=== PATIENT | male | born 1985 | race Caucasian/White ===

== ENCOUNTER 2017-10-19 11:07 | Emergency (ER) | payer SELFPAY ==
[~2017-10-19] VITALS: Ht 182.9 cm; Wt 100.8 kg
[~2017-10-19 11:07] MED LIST: CPR500 PO; PHEN-1043 PO; TAMS0.4C38 PO
[2017-10-19 11:12] VITALS: TEMP 36.2; Ht 182.9 cm; Wt 100.8 kg
[2017-10-19] MEDS ORDERED: SODIUM CHLORIDE 0.9% 1000ML 1,000 ML IV ONE (11:27)
[2017-10-19] MEDS ORDERED: SODIUM CHLORIDE 0.9% 1000ML 1,000 ML IV STA (11:27)
[2017-10-19] MEDS ORDERED: ONDANSETRON INJ 2 MG/ML 2 ML VIAL IV STA (11:27)
[2017-10-19] MEDS ORDERED: HYDROmorphone INJ 1 MG/ML SYR IV STA ×2 (11:27→11:53)
[2017-10-19 11:35] LABS: BASO % 0.6 %; BASO ABS # 0.05 K/uL (0-0.2); EOS % 8.8 %; EOS ABS # 0.75 K/uL (0-0.5); HEMATOCRIT 44.7 % (42-52); HEMOGLOBIN 15.9 g/dL (14.0-18.0); IG# 0.01 K/uL (0.00-0.02); LYMPH % 29.4 %; LYMPH ABS # 2.49 K/uL (1.2-3.4); MEAN CORPUSCULAR HEMOGLOBIN 29.9 pg (25-34); MEAN CORPUSCULAR HGB CONC 35.6 g/dl (32-36); MEAN PLATELET VOLUME 10.2 fL (7.4-10.4); MONO % 7.5 %; MONO ABS # 0.64 K/uL (0.11-0.59); NEUT % 53.6 %; NEUT ABS # 4.54 K/uL (1.4-6.5); PLATELET COUNT 236 K/uL (130-400); RED CELL DISTRIBUTION WIDTH CV 12.8 % (11.5-14.5); RED CELL DISTRIBUTION WIDTH SD 38.5 fL (36.4-46.3); WHITE BLOOD COUNT 8.48 K/uL (4.8-10.8)
[2017-10-19 11:47] LABS: ALBUMIN 4.2 gm/dl (3.4-5.0); CALCIUM 9.2 mg/dl (8.5-10.1); CREATININE 1.05 mg/dl (0.60-1.40); POTASSIUM 3.7 mmol/L (3.5-5.1)
[2017-10-19 11:50] LABS: TOTAL PROTEIN 7.4 gm/dl (6.4-8.2)
[2017-10-19] MEDS ORDERED: KETOROLAC TROMETHAMINE 30 MG/ML VIAL IV STA (11:53)
--- NOTE | 2017-10-19 12:38 | DIAGNOSTIC IMAGING REPORT ---
ABD/PELVIS WITHOUT FOR STONE CT DOSE: 1200.33 mGy.cm HISTORY: Flank pain eval for stone TECHNIQUE: Multiaxial CT images of the abdomen and pelvis were performed without the use of intravenous and oral contrast according to the standard department stone protocol. A dose lowering technique was utilized adhering to the principles of ALARA. COMPARISON STUDY: 12/03/2015 FINDINGS: Lung bases are clear. Liver spleen and pancreas are unremarkable. bilateral nephrocalcinosis, which is slightly progressive as compared to the prior study. 5 mm obstructing calculus proximal left ureter. Mild left hydroureteronephrosis. No significant perinephric fat stranding. The bowel pattern is considered nonobstructive. Bladder is midline. There is no free fluid within the pelvic cul-de-sac. IMPRESSION: 1. 5 mm obstructing calculus proximal left ureter. 2. Mild left hydroureteronephrosis. 3. Bilateral nephrocalcinosis slightly progressive from the prior study. The above report was generated using voice recognition software. It may contain grammatical, syntax or spelling errors. Electronically signed by: Johan Bueno M.D. 10/19/2017 12:36 PM Dictated Date/Time: 10/19/2017 12:28 PM
[2017-10-19] MEDS ORDERED: TAMS0.4C38 PO ×2 (16:25→16:53)
[2017-10-19] MEDS ORDERED: OXYC1TAB3 PO ×2 (16:25→16:53)
--- NOTE | 2017-10-19 16:27 | EMERGENCY ROOM VISIT NOTE ---
History Report prepared by Chintan: Paco Maynard Under the Supervision of: Dr. Baltazar Pham M.D. First contact with patient: 11:23 Chief Complaint: FLANK PAIN Stated Complaint: KIDNEY STONES History of Present Illness The patient is a 31 year old male who presents to the Emergency Room with complaints of worsening and severe left lower quadrant abdominal pain that began last night. The patient states that his left lower quadrant pain does radiate into his left flank as well. His pain worsened significantly this morning after eating breakfast. He does have a history of Kidney Stones and had his last episode a couple of months ago. Source of History: patient Onset: Last night Position: abdomen (LLQ) Symptom Intensity: severe Timing: worsening Associated Symptoms: + back pain (Left Flank) Review of Systems See HPI for pertinent positives & negatives. A total of 10 systems reviewed and were otherwise negative. Past Medical & Surgical Medical Problems: (1) Acute injury of left anterior cruciate ligament (2) Hydronephrosis of left kidney Old medical records were reviewed. Nurse's notes were reviewed and I agree with. Family History No significant family history Social History Smoking Status: Never Smoker Alcohol Use: none, occasionally Drug Use: none Marital Status: in relationship Housing Status: lives with significant other Occupation Status: employed Current/Historical Medications Scheduled Tamsulosin Hcl (Flomax), 0.4 MG PO QD Scheduled PRN Oxycodone Immediate Rel Tab (Roxicodone Ir), 1-2 TAB PO Q4H PRN for Severe Pain Allergies Coded Allergies: No Known Allergies (Unverified , 12/06/15) Physical Exam Vital Signs Date Time Temp Pulse Resp B/P (MAP) Pulse Ox O2 Delivery O2 Flow Rate FiO2 10/19/17 15:02 88 20 112/81 100 Room Air 10/19/17 13:08 100 20 126/80 96 Room Air 10/19/17 11:12 36.2 107 20 132/87 99 Room Air Physical Exam General: uncomfortable appearing middle age male holding emesis bag. Crying due to pain. HEENT: Normal cephalic atraumatic. Pupils are equal round and reactive to light. Extraocular movements are intact. Oropharynx is pink with moist mucous membranes. No swelling of the mouth lips or tongue. Neck: Supple with a midline trachea. No meningeal signs or stiffness, no JVD or bruits. No Stridor. Chest: Clear to auscultation bilaterally. No wheezes or rhonchi. No increased work of breathing. Heart: regular rate and rhythm. Abdomen: Soft nontender, nondistended without rebound guarding or rigidity. Extremities: No cyanosis clubbing or edema. No calf tenderness or assymetry Spine/Back. Non tender to palpation. No CVA tenderness Skin: Good turgor without rashes. Neurologic exam: Cranial nerves two through 12 are intact. Motor and sensation are intact and symmetrical throughout. Medical Decision & Procedures ER Provider Diagnostic Interpretation: Radiology results as stated below per my review and radiologist interpretation: ABD/PELVIS WITHOUT FOR STONE CT DOSE: 1200.33 mGy.cm HISTORY: Flank pain eval for stone TECHNIQUE: Multiaxial CT images of the abdomen and pelvis were performed without the use of intravenous and oral contrast according to the standard department stone protocol. A dose lowering technique was utilized adhering to the principles of ALARA. COMPARISON STUDY: 12/03/2015 FINDINGS: Lung bases are clear. Liver spleen and pancreas are unremarkable. bilateral nephrocalcinosis, which is slightly progressive as compared to the prior study. 5 mm obstructing calculus proximal left ureter. Mild left hydroureteronephrosis. No significant perinephric fat stranding. The bowel pattern is considered nonobstructive. Bladder is midline. There is no free fluid within the pelvic cul-de-sac. IMPRESSION: 1. 5 mm obstructing calculus proximal left ureter. 2. Mild left hydroureteronephrosis. 3. Bilateral nephrocalcinosis slightly progressive from the prior study. The above report was generated using voice recognition software. It may contain grammatical, syntax or spelling errors. Electronically signed by: Johan Bueno M.D. 10/19/2017 12:36 PM Dictated Date/Time: 10/19/2017 12:28 PM Laboratory Results 10/19/17 11:15 Red Blood Count 5.32, Mean Corpuscular Volume 84.0, Mean Corpuscular Hemoglobin 29.9, Mean Corpuscular Hemoglobin Concent 35.6, Mean Platelet Volume 10.2, Neutrophils (%) (Auto) 53.6, Lymphocytes (%) (Auto) 29.4, Monocytes (%) (Auto) 7.5, Eosinophils (%) (Auto) 8.8, Basophils (%) (Auto) 0.6, Neutrophils # (Auto) 4.54, Lymphocytes # (Auto) 2.49, Monocytes # (Auto) 0.64, Eosinophils # (Auto) 0.75, Basophils # (Auto) 0.05 10/19/17 11:15 Test 10/19/17 11:15 10/19/17 16:05 White Blood Count 8.48 K/uL (4.8-10.8) Red Blood Count 5.32 M/uL (4.7-6.1) Hemoglobin 15.9 g/dL (14.0-18.0) Hematocrit 44.7 % (42-52) Mean Corpuscular Volume 84.0 fL (80-100) Mean Corpuscular Hemoglobin 29.9 pg (25-34) Mean Corpuscular Hemoglobin Concent 35.6 g/dl (32-36) Platelet Count 236 K/uL (130-400) Mean Platelet Volume 10.2 fL (7.4-10.4) Neutrophils (%) (Auto) 53.6 % Lymphocytes (%) (Auto) 29.4 % Monocytes (%) (Auto) 7.5 % Eosinophils (%) (Auto) 8.8 % Basophils (%) (Auto) 0.6 % Neutrophils # (Auto) 4.54 K/uL (1.4-6.5) Lymphocytes # (Auto) 2.49 K/uL (1.2-3.4) Monocytes # (Auto) 0.64 K/uL (0.11-0.59) Eosinophils # (Auto) 0.75 K/uL (0-0.5) Basophils # (Auto) 0.05 K/uL (0-0.2) RDW Standard Deviation 38.5 fL (36.4-46.3) RDW Coefficient of Variation 12.8 % (11.5-14.5) Immature Granulocyte % (Auto) 0.1 % Immature Granulocyte # (Auto) 0.01 K/uL (0.00-0.02) Anion Gap 9.0 mmol/L (3-11) Est Creatinine Clear Calc Drug Dose 125.3 ml/min Estimated GFR () 109.1 Estimated GFR (Non- 94.1 BUN/Creatinine Ratio 14.6 (10-20) Calcium Level 9.2 mg/dl (8.5-10.1) Total Bilirubin 0.5 mg/dl (0.2-1) Direct Bilirubin 0.1 mg/dl (0-0.2) Aspartate Amino Transf (AST/SGOT) 16 U/L (15-37) Alanine Aminotransferase (ALT/SGPT) 28 U/L (12-78) Alkaline Phosphatase 68 U/L (45-117) Total Protein 7.4 gm/dl (6.4-8.2) Albumin 4.2 gm/dl (3.4-5.0) Lipase 105 U/L (73-393) Urine Color DK YELLOW Urine Appearance CLEAR (CLEAR) Urine pH 7.0 (4.5-7.5) Urine Specific [place] 1.023 (1.000-1.030) Urine Protein NEG (NEG) Urine Glucose (UA) NEG (NEG) Urine Ketones NEG (NEG) Urine Occult Blood NEG (NEG) Urine Nitrite NEG (NEG) Urine Bilirubin NEG (NEG) Urine Urobilinogen NEG (NEG) Urine Leukocyte Esterase NEG (NEG) Laboratory studies as stated above per my review. Medications Administered Medications (Trade) Dose Ordered Sig/Sriram Route Start Time Stop Time Status Last Admin Dose Admin Sodium Chloride 1,000 ml @ 999 mls/hr Q1H1M STAT IV 10/19/17 11:27 10/19/17 12:27 DC 10/19/17 11:36 999 MLS/HR Sodium Chloride 1,000 ml @ 200 mls/hr Q5H ONCE IV 10/19/17 11:27 10/19/17 16:26 DC 10/19/17 11:27 200 MLS/HR Ondansetron HCl (Zofran Inj) 4 mg NOW STAT IV 10/19/17 11:27 10/19/17 11:29 DC 10/19/17 11:37 4 MG Hydromorphone HCl (Dilaudid Inj) 1 mg NOW STAT IV 10/19/17 11:27 10/19/17 11:29 DC 10/19/17 11:36 1 MG Ketorolac Tromethamine (Toradol Inj) 30 mg NOW STAT IV 10/19/17 11:53 10/19/17 11:55 DC 10/19/17 12:02 30 MG Hydromorphone HCl (Dilaudid Inj) 1 mg NOW STAT IV 10/19/17 11:53 10/19/17 11:55 DC 10/19/17 12:02 1 MG ED Course 1123: Past medical records reviewed. The patient was evaluated in room B6, and a complete history and physical examination were performed. 1127: Ordered Dilaudid 1 mg IV, Zofran 4 mg Iv, Sodium Chloride 1000 mL @ 200 mL /hr IV, Sodium Chloride 1000 mL @ 999 mL/hr Iv. 1153: Ordered Dilaudid 1 mg IV, Toradol 30 mg IV. 1248: I checked on the patient. He is resting comfortably. 1432: I checked on the patient at this time. He is doing well. 1510: The patient is unable to urinate, and he is having worsening pain. His bladder shows 350. 1624: I discussed the results and treatment plan with him. He verbalized agreement of the treatment plan. The patient was discharged home. Medical Decision Differential Diagnosis includes; Kidney stone, infection, electrolyte or metabolic abnormality. This patient comes in as described above. He was placed in room V6. He is here for treatment and evaluation of left flank pain. He has a long history of kidney stones and says it feels the same. On exam, he is rolling around in the bed and appears very uncomfortable. He was arrested just before this happened but says he was having pain prior. IV access established had with IV normal saline and he was given Dilaudid 1 mg IV and Zofran 4 mg IV. He has no white count or fever to suggest infection. Urinalysis does not suggest the UTI. He has normal kidney function. He has no electrolyte or metabolic abnormalities. I did do a CAT scan and he is obstructing proximal stone on the left is 5 mm. He did receive additional IV Dilaudid and IV Toradol while he was here is feeling a lot better and feels up to going home. I will start him on Flomax he has done well with this before. He will strain his urine and drink plenty of fluids. Use ibuprofen 400 mg every 6 hours, take with food. For breakthrough pain, he is OxyIR 5 mg, 1 or 2 pills every 4-6 hours as needed. he was warned that this can make him drowsy do not take for drinking, driving, working. Apparently, the police do have a warrant for his arrest and have been called and he will be discharged into their custody. [place] Drug Monitoring Program Search Results: patient reviewed within database, no issues identified Medication Reconcilliation Current Medication List: was personally reviewed by me Blood Pressure Screening Patient's blood pressure: Normal blood pressure Impression Primary Impression: Renal colic Additional Impression: Kidney stone on left side Scribe Attestation The scribe's documentation has been prepared under my direction and personally reviewed by me in its entirety. I confirm that the note above accurately reflects all work, treatment, procedures, and medical decision making performed by me. Departure Information Dispostion Home / Self-Care Prescriptions Tamsulosin Hcl (FLOMAX) 0.4 Mg Cap 0.4 MG PO QD for 10 Days, #10 CAP Prov: Baltazar Pham M.D. 10/19/17 Oxycodone Immediate Rel Tab (ROXICODONE IR) 5 Mg Tab 1-2 TAB PO Q4H Y for Severe Pain, #24 TAB Prov: Baltazar Pham M.D. 10/19/17 Referrals Alcides Shin PA-C (PCP) Forms HOME CARE DOCUMENTATION FORM, IMPORTANT VISIT INFORMATION Patient Instructions [facility] Additional Instructions Rest. Drink plenty of fluids. Use ibuprofen 400 mg every 6 hours, take with food More severe pain, may use OxyIR 5 mg, 1 or 2 pills every 4-6 hours as needed OxyIR may make you drowsy- do not take before drinking, driving, working Return if: Increasing pain, worsening of symptoms, fever, not tolerating fluids , any new problems or concerns Use Flomax once a day for the next 10 daysfollow-up with urology this week for recheck Problem Qualifiers
[2017-10-19 17:36] VITALS: BP 136/94; PULSE 86; O2SAT 100
== END 2017-10-19 17:50 | disposition home or self-care (01) ==
LOC: EDBD 11:07 → C.EDB 11:08
DX: N23 Unspecified renal colic (principal); N20.0 Calculus of kidney